=== PATIENT | male | born 1965 | race Caucasian/White ===

== ENCOUNTER 2021-02-11 08:57 | Inpatient (IN) | payer BC, SELFPAY ==
[~2021-02-11] VITALS: Ht 177.8 cm; Wt 155.8 kg
[2021-02-11 08:57] VITALS: BP_SYST 158
[2021-02-11] MEDS ORDERED: NITROGLYCERIN 0.4 MG TAB.SUBL SL ONE (09:15)
[2021-02-11] MEDS ORDERED: ASPIRIN 325 MG TABLET PO ONE (09:15)
[2021-02-11 09:25] LABS: BASOPHILS # (AUTO) 0.1 K/uL (0.0-0.2); BASOPHILS % (AUTO) 0.5 % (0.0-2.0); EOSINOPHILS # (AUTO) 0.1 K/uL (0.0-0.4); EOSINOPHILS % (AUTO) 1.1 % (0.0-4.0); HEMATOCRIT 50.3 % (36-54); LYMPHOCYTES # (AUTO) 2.4 K/uL (1.0-5.5); LYMPHOCYTES % (AUTO) 18.5 % (20.5-51.5); MEAN CORPUSCULAR HEMOGLOBIN 30 pg (27-31); MEAN CORPUSCULAR HGB CONC 34 % (32-36); MEAN CORPUSCULAR VOLUME 87 fL (79.0-98.0); MONOCYTES # (AUTO) 0.9 K/uL (0.0-1.0); MONOCYTES % (AUTO) 6.8 % (1.7-9.3); NEUTROPHILS # (AUTO) 9.3 K/uL (1.8-7.7); NEUTROPHILS % (AUTO) 73.1 % (40.0-70.0); PLATELET COUNT (AUTO) 291 K/uL (130-430); RED BLOOD CELL COUNT(AUTO) 5.75 MIL/uL (4.2-6.2); RED CELL DISTRIBUTION WIDTH 14.3 % (9.0-15.0); WHITE BLOOD COUNT (AUTO) 12.7 K/uL (4.8-10.8)
[2021-02-11 09:39] LABS: CREATININE 1.54 mg/dL (0.55-1.30); POTASSIUM 3.7 mmol/L (3.5-5.1)
[2021-02-11] MEDS ORDERED: FURO-149 PO (09:43)
[2021-02-11] MEDS ORDERED: BUPR-120 PO (09:43)
[2021-02-11] MEDS ORDERED: PANT20TA2 PO (09:43)
[2021-02-11] MEDS ORDERED: LOSA50TA3 PO (09:43)
[2021-02-11] MEDS ORDERED: CLOP75TA32 PO (09:43)
[2021-02-11] MEDS ORDERED: LISI40TA13 PO (09:43)
[2021-02-11] MEDS ORDERED: ASPI-1393 PO (09:43)
[2021-02-11] MEDS ORDERED: METO50TA16 PO (09:43)
[2021-02-11 09:44] LABS: ALBUMIN 3.6 g/dL (3.4-4.8); TOTAL BILIRUBIN 0.8 mg/dL (0.0-1.0)
[2021-02-11 13:30] VITALS: BP_SYST 124
[2021-02-11] MEDS ORDERED: ASPIRIN 81 MG TABLET(ECOTRIN) PO ONE (13:30)
[2021-02-11] MEDS ORDERED: LOSARTAN POTASSIUM 50 MG TABLET (COZAAR) PO ONE (13:30)
[2021-02-11] MEDS ORDERED: CLOPIDOGREL BISULFATE 75 MG TABLET PO ONE (13:30)
[2021-02-11] MEDS: D5/0.45 NS 1,000 ML IV SCH (13:30)
[2021-02-11] MEDS ORDERED: ONDANSETRON HCL 4 MG/2 ML VIAL IVP PRN (13:30)
[2021-02-11] MEDS ORDERED: FUROSEMIDE 40 MG TABLET PO ONE (13:30)
[2021-02-11] MEDS ORDERED: NALOXONE HCL 0.4 MG/ML AMP (NARCAN) IVP PRN ×2 (13:30)
[2021-02-11] MEDS ORDERED: ACETAMINOPHEN 325 MG TABLET PO PRN (13:30)
[2021-02-11] MEDS ORDERED: HYDROcodone/ACETAMIN 10-325 MG TAB PO PRN (13:30)
[2021-02-11] MEDS ORDERED: HYDROcodone/ACETAMIN 5-325 MG TAB (NORCO/ VICODIN) PO PRN (13:30)
[2021-02-11] MEDS ORDERED: buPROPion HCL 150 MG XL TAB PO ONE (13:30)
[2021-02-11] MEDS ORDERED: LORazepam 2 MG/ML VIAL IVP PRN (13:30)
[2021-02-11] MEDS ORDERED: lisinopriL 20 MG TABLET PO ONE ×2 (13:45)
[2021-02-11] MEDS ORDERED: PANTOPRAZOLE SODIUM 40 MG TAB PO ONE (14:00)
[2021-02-11 16:00] VITALS: BP_SYST 148
[2021-02-11] MEDS: INSULIN REGULAR, HUMAN 100 UNITS/ML, 10 ML VIAL (humuLIN R) SUBCUT PRN ×2 (16:55→20:36)
[2021-02-11 19:00] VITALS: BP_SYST 136
[2021-02-11 20:00] VITALS: BP_SYST 136
[2021-02-11] MEDS: METOPROLOL TARTRATE 50 MG TABLET PO SCH (20:29)
[2021-02-12] VITALS: BP_SYST 132
[2021-02-12 00:21] VITALS: BP_SYST 138
[2021-02-12 06:39] LABS: EOSINOPHILS # (AUTO) 0.2 K/uL (0.0-0.4); EOSINOPHILS % (AUTO) 2.2 % (0.0-4.0); HEMATOCRIT 46.6 % (36-54); HEMOGLOBIN 15.9 g/dL (14.0-18.0); LYMPHOCYTES # (AUTO) 2.2 K/uL (1.0-5.5); LYMPHOCYTES % (AUTO) 24.4 % (20.5-51.5); MEAN CORPUSCULAR HEMOGLOBIN 30 pg (27-31); MEAN CORPUSCULAR HGB CONC 34 % (32-36); MEAN CORPUSCULAR VOLUME 88 fL (79.0-98.0); MONOCYTES # (AUTO) 0.6 K/uL (0.0-1.0); MONOCYTES % (AUTO) 6.5 % (1.7-9.3); PLATELET COUNT (AUTO) 291 K/uL (130-430); RED BLOOD CELL COUNT(AUTO) 5.32 MIL/uL (4.2-6.2); RED CELL DISTRIBUTION WIDTH 13.9 % (9.0-15.0); WHITE BLOOD COUNT (AUTO) 9.2 K/uL (4.8-10.8)
[2021-02-12] MEDS: INSULIN REGULAR, HUMAN 100 UNITS/ML, 10 ML VIAL (humuLIN R) SUBCUT PRN ×4 (06:46→21:33)
[2021-02-12 06:50] LABS: CALCIUM 8.8 mg/dL (8.4-11.0); CREATININE 1.23 mg/dL (0.55-1.30); PHOSPHORUS 3.7 mg/dL (2.7-4.5)
[2021-02-12 07:49] LABS: BASOPHILS # (AUTO) 0.1 K/uL (0.0-0.2); BASOPHILS % (AUTO) 0.7 % (0.0-2.0); NEUTROPHILS # (AUTO) 6.1 K/uL (1.8-7.7); NEUTROPHILS % (AUTO) 66.2 % (40.0-70.0)
[2021-02-12 08:30] VITALS: BP_SYST 104
[2021-02-12] MEDS: ASPIRIN 81 MG TABLET(ECOTRIN) PO SCH (08:55)
[2021-02-12] MEDS: D5/0.45 NS 1,000 ML IV SCH (08:55)
[2021-02-12] MEDS: buPROPion HCL 150 MG XL TAB PO SCH (08:55)
[2021-02-12] MEDS: CLOPIDOGREL BISULFATE 75 MG TABLET PO SCH (08:56)
[2021-02-12] MEDS: PANTOPRAZOLE SODIUM 40 MG TAB PO SCH (08:56)
[2021-02-12] MEDS: LOSARTAN POTASSIUM 50 MG TABLET (COZAAR) PO SCH (08:57)
[2021-02-12] MEDS: FUROSEMIDE 40 MG TABLET PO SCH (08:58)
[2021-02-12] MEDS: lisinopriL 20 MG TABLET PO SCH (09:00)
[2021-02-12] MEDS: METOPROLOL TARTRATE 50 MG TABLET PO SCH ×2 (09:00→21:29)
[2021-02-12 12:00] VITALS: BP_SYST 126
[2021-02-12 16:32] VITALS: BP_SYST 116
[2021-02-12 20:00] VITALS: BP_SYST 125
[2021-02-13 00:05] VITALS: BP_SYST 109
[2021-02-13] MEDS: INSULIN REGULAR, HUMAN 100 UNITS/ML, 10 ML VIAL (humuLIN R) SUBCUT PRN ×4 (05:20→21:02)
[2021-02-13] MEDS: D5/0.45 NS 1,000 ML IV SCH (05:29)
[2021-02-13 08:00] VITALS: BP_SYST 93
[2021-02-13 08:10] LABS: BASOPHILS # (AUTO) 0.1 K/uL (0.0-0.2); BASOPHILS % (AUTO) 0.6 % (0.0-2.0); EOSINOPHILS # (AUTO) 0.2 K/uL (0.0-0.4); EOSINOPHILS % (AUTO) 2.1 % (0.0-4.0); HEMOGLOBIN 16.2 g/dL (14.0-18.0); LYMPHOCYTES # (AUTO) 1.8 K/uL (1.0-5.5); LYMPHOCYTES % (AUTO) 18.7 % (20.5-51.5); MEAN CORPUSCULAR HEMOGLOBIN 30 pg (27-31); MEAN CORPUSCULAR HGB CONC 34 % (32-36); MEAN CORPUSCULAR VOLUME 88 fL (79.0-98.0); MONOCYTES # (AUTO) 0.8 K/uL (0.0-1.0); MONOCYTES % (AUTO) 7.9 % (1.7-9.3); NEUTROPHILS # (AUTO) 6.9 K/uL (1.8-7.7); NEUTROPHILS % (AUTO) 70.7 % (40.0-70.0); PLATELET COUNT (AUTO) 268 K/uL (130-430); RED BLOOD CELL COUNT(AUTO) 5.44 MIL/uL (4.2-6.2); RED CELL DISTRIBUTION WIDTH 14.1 % (9.0-15.0); WHITE BLOOD COUNT (AUTO) 9.7 K/uL (4.8-10.8)
[2021-02-13 08:53] LABS: CALCIUM 9.1 mg/dL (8.4-11.0); CREATININE 1.27 mg/dL (0.55-1.30)
[2021-02-13] MEDS: FUROSEMIDE 40 MG TABLET PO SCH (09:00)
[2021-02-13] MEDS: lisinopriL 20 MG TABLET PO SCH (09:00)
[2021-02-13] MEDS: METOPROLOL TARTRATE 50 MG TABLET PO SCH ×2 (09:00→20:55)
[2021-02-13] MEDS: LOSARTAN POTASSIUM 50 MG TABLET (COZAAR) PO SCH (09:00)
[2021-02-13] MEDS: PANTOPRAZOLE SODIUM 40 MG TAB PO SCH (10:26)
[2021-02-13] MEDS: buPROPion HCL 150 MG XL TAB PO SCH (10:26)
[2021-02-13] MEDS: CLOPIDOGREL BISULFATE 75 MG TABLET PO SCH (10:26)
[2021-02-13] MEDS: ASPIRIN 81 MG TABLET(ECOTRIN) PO SCH (10:26)
[2021-02-13 12:00] VITALS: BP_SYST 114
[2021-02-13] MEDS ORDERED: *LOVENOX 1MG/KG Q12H/PHARMACY XX ONE (12:00)
[2021-02-13] MEDS ORDERED: ENOXAPARIN SODIUM 120 MG/0.8 ML SYRINGE SUBCUT ONE (12:15)
[2021-02-13 16:20] VITALS: BP_SYST 115
[2021-02-13 20:00] VITALS: BP_SYST 137
[2021-02-13] MEDS: ENOXAPARIN SODIUM 120 MG/0.8 ML SYRINGE SUBCUT SCH (20:56)
[2021-02-14 00:36] VITALS: BP_SYST 114
[2021-02-14] MEDS: D5/0.45 NS 1,000 ML IV SCH ×2 (01:30→12:09)
[2021-02-14 06:39] LABS: BASOPHILS # (AUTO) 0.1 K/uL (0.0-0.2); BASOPHILS % (AUTO) 0.8 % (0.0-2.0); EOSINOPHILS # (AUTO) 0.2 K/uL (0.0-0.4); EOSINOPHILS % (AUTO) 2.2 % (0.0-4.0); HEMATOCRIT 46.3 % (36-54); HEMOGLOBIN 15.8 g/dL (14.0-18.0); LYMPHOCYTES # (AUTO) 2.2 K/uL (1.0-5.5); LYMPHOCYTES % (AUTO) 22.8 % (20.5-51.5); MEAN CORPUSCULAR HEMOGLOBIN 30 pg (27-31); MEAN CORPUSCULAR HGB CONC 34 % (32-36); MEAN CORPUSCULAR VOLUME 88 fL (79.0-98.0); MONOCYTES # (AUTO) 0.8 K/uL (0.0-1.0); MONOCYTES % (AUTO) 8.5 % (1.7-9.3); NEUTROPHILS # (AUTO) 6.4 K/uL (1.8-7.7); NEUTROPHILS % (AUTO) 65.7 % (40.0-70.0); PLATELET COUNT (AUTO) 280 K/uL (130-430); PROTHROMBIN TIME 10.3 SECS (9.5-12.5); RED BLOOD CELL COUNT(AUTO) 5.26 MIL/uL (4.2-6.2); RED CELL DISTRIBUTION WIDTH 13.8 % (9.0-15.0); WHITE BLOOD COUNT (AUTO) 9.8 K/uL (4.8-10.8)
[2021-02-14 07:04] LABS: CALCIUM 9.2 mg/dL (8.4-11.0); CREATININE 1.45 mg/dL (0.55-1.30); POTASSIUM 4.7 mmol/L (3.5-5.1); TOTAL BILIRUBIN 0.5 mg/dL (0.0-1.0)
[2021-02-14 07:53] VITALS: BP_SYST 118
[2021-02-14] MEDS: PANTOPRAZOLE SODIUM 40 MG TAB PO SCH (09:00)
[2021-02-14] MEDS: buPROPion HCL 150 MG XL TAB PO SCH (09:00)
[2021-02-14] MEDS: ENOXAPARIN SODIUM 120 MG/0.8 ML SYRINGE SUBCUT SCH (09:00)
[2021-02-14] MEDS: LOSARTAN POTASSIUM 50 MG TABLET (COZAAR) PO SCH (09:36)
[2021-02-14] MEDS: FUROSEMIDE 40 MG TABLET PO SCH (09:36)
[2021-02-14] MEDS: CLOPIDOGREL BISULFATE 75 MG TABLET PO SCH (09:36)
[2021-02-14] MEDS: ASPIRIN 81 MG TABLET(ECOTRIN) PO SCH (09:37)
[2021-02-14] MEDS: METOPROLOL TARTRATE 50 MG TABLET PO SCH (09:37)
[2021-02-14] MEDS: lisinopriL 20 MG TABLET PO SCH (09:38)
[2021-02-14 11:25] VITALS: BP_SYST 127
[2021-02-14 13:54] VITALS: BP_SYST 109
== END 2021-02-14 14:50 | disposition short-term general hospital (02) | DRG 281 ==
LOC: SED 08:57 → STU 11:13 → OBSVTOIN 02-12 12:32
PROVIDERS: ADMIT Preventive Medicine Preventive Medicine/Occupational Environmental Medicine; ATTEND Preventive Medicine Preventive Medicine/Occupational Environmental Medicine
DX: I21.4 Non-ST elevation (NSTEMI) myocardial infarction (principal); N17.9 Acute kidney failure, unspecified; Z68.42 Body mass index [BMI] 45.0-49.9, adult; D72.829 Elevated white blood cell count, unspecified; E11.65 Type 2 diabetes mellitus with hyperglycemia; E66.9 Obesity, unspecified; I25.119 Atherosclerotic heart disease of native coronary artery with unspecified angina pectoris; N18.9 Chronic kidney disease, unspecified; E11.22 Type 2 diabetes mellitus with diabetic chronic kidney disease; Z20.822 Contact with and (suspected) exposure to COVID-19; E78.5 Hyperlipidemia, unspecified; I13.10 Hypertensive heart and chronic kidney disease without heart failure, with stage 1 through stage 4 chronic kidney disease, or unspecified chronic kidney disease; Z79.01 Long term (current) use of anticoagulants; Z79.899 Other long term (current) drug therapy; Z79.82 Long term (current) use of aspirin; Z79.02 Long term (current) use of antithrombotics/antiplatelets; I25.2 Old myocardial infarction; Z95.5 Presence of coronary angioplasty implant and graft; Z88.8 Allergy status to other drugs, medicaments and biological substances; Z82.49 Family history of ischemic heart disease and other diseases of the circulatory system
CPT/HCPCS: 36415; 71045; 80048; 80053; 82962; 83735; 84100; 84484; 85025; 85610-TC; 93005; 93306; 99285; G0378; J1650; J1815